=== PATIENT | male | born 1955 | race Caucasian/White ===

== ENCOUNTER 2017-08-27 13:14 | Emergency (ER) | payer SELFPAY, OTHER ==
[2017-08-27] MEDS: CEFTRIAXONE 1 GM INJ IM (15:43)
[2017-08-27] MEDS: LIDOCAINE 1% (MDV) 10 ML INJ INFIL (15:43)
== END 2017-08-27 16:14 | disposition home or self-care (01) ==
LOC: FTE 13:14
DX: K61.0 Anal abscess (principal); E11.9 Type 2 diabetes mellitus without complications; F17.210 Nicotine dependence, cigarettes, uncomplicated
CPT/HCPCS: 96372; 99284-25

== ENCOUNTER 2017-08-29 10:05 | Emergency (ER) | payer OTHER | END 2017-08-29 11:44 | disposition home or self-care (01) | LOC: FTE 10:05 | DX: Z48.01 Encounter for change or removal of surgical wound dressing (principal); L02.31 Cutaneous abscess of buttock; E11.9 Type 2 diabetes mellitus without complications; Z87.891 Personal history of nicotine dependence | CPT/HCPCS: 99281 ==